=== PATIENT | female | born 1950 | race Caucasian/White ===

== ENCOUNTER 2019-06-14 10:22 | Outpatient (CLI) | payer OTHER ==
[~2019-06-14 10:22] MED LIST: LOSARTAN-HCTZ1 EACH PO
== END 2019-06-14 10:27 | disposition home or self-care (01) ==
LOC: MAMO-SONO 10:22
DX: Z12.31 Encounter for screening mammogram for malignant neoplasm of breast (principal); N60.11 Diffuse cystic mastopathy of right breast; N60.12 Diffuse cystic mastopathy of left breast; Z87.898 Personal history of other specified conditions; Z09 Encounter for follow-up examination after completed treatment for conditions other than malignant neoplasm

== ENCOUNTER 2022-04-08 11:20 | Emergency (ER) | payer OTHER ==
[~2022-04-08] VITALS: Ht 162.6 cm; Wt 45.4 kg
[2022-04-08] MEDS ORDERED: MEDROLPACK PO (17:26)
== END 2022-04-08 18:10 | disposition home or self-care (01) ==
LOC: ER 11:20
DX: U07.1 COVID-19 (principal); I10 Essential (primary) hypertension; Z86.73 Personal history of transient ischemic attack (TIA), and cerebral infarction without residual deficits

== ENCOUNTER 2022-04-09 12:00 | Outpatient (CLI) | payer OTHER | END 2022-04-09 12:35 | disposition home or self-care (01) | LOC: ASH CLINIC 12:00 | DX: U07.1 COVID-19 (principal) ==

== ENCOUNTER 2024-11-04 13:34 | Outpatient (CLI) | payer OTHER ==
[~2024-11-04 13:34] MED LIST changes: +MEDROLPACK PO
== END 2024-11-04 13:41 | disposition home or self-care (01) ==
LOC: TOM 13:34
PROVIDERS: ATTEND Internal Medicine
DX: S09.90XA Unspecified injury of head, initial encounter (principal)

== ENCOUNTER 2024-11-15 07:35 | Outpatient (CLI) | payer OTHER | END 2024-11-15 07:36 | disposition home or self-care (01) | LOC: NUCLEAR 07:35 | PROVIDERS: ATTEND Internal Medicine | DX: I11.9 Hypertensive heart disease without heart failure (principal) | CPT/HCPCS: 78452; 93017; A9500 ==